=== PATIENT | female | born 1965 | race American Indian/Alaskan Native ===

== ENCOUNTER 2021-07-12 01:55 | Emergency (ER) | payer SELFPAY ==
[2021-07-12] MEDS ORDERED: ONDANSETRON 4 MG ODT TAB PO ONE (03:16)
[2021-07-12] MEDS ORDERED: HYDROcodone/ACETAMINOPHEN 7.5-325MG TAB PO ONE (03:16)
--- NOTE | 2021-07-12 04:02 | XRay Report ---
Right hand 3 views INDICATION: Hand pain FINDINGS: There is a fracture deformity of the distal radius suggested, uncertain age. Degenerative c hange and base of thumb and thumb MCP joint. IP joints are difficult to visualize as patient was not extending fingers. Signer Name: Yemi Adames MD Signed: 07/12/2021 3:57 AM Workstation Name: [email or web address]
--- NOTE | 2021-07-12 04:40 | Emergency Department Report ---
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 Patient states that the pain has been persistent and constant and that bearing weight on the right leg makes the pain worse. Patient denies head or neck injuries, dizziness, syncope, seizures, lightheadedness, nausea and vomiting, headache, chest pain or shortness of breath, numbness and tingling or weakness of upper and lower extremities bilaterally. MD Complaint: fall, other (right knee and right hand pain) -: Sudden, hour(s) (12) Fall From: standing, down stairs (#) (3) When Fall Occurred: other (12 hours ago) Fall Witnessed: yes, by family Place Fall Occurred: home Loss of Consciousness: none Prolonged Down Time?: no Symptoms Prior to Fall: none, other (tripped over a car) Location: other (right knee and right hand) Location - Extremities: Right: Hand (pain, deformity), Knee (pain and swelling) Severity: severe Severity scale (0 -10): 8 Quality: sharp, aching Context: tripped/slipped Associated Symptoms: denies. denies: headache, neck pain, numbness, weakness, chest paint, shortness of breath, abdominal pain, hematuria, unable to walk, lightheaded, vertigo, confusion, other - Related Data Previous Rx's Medication Instructions Recorded Last Taken Type Baclofen 20 mg PO Q12H PRN #20 tablet 07/12/21 Unknown Rx HYDROcodone/APAP 5-325 [[place] 1 each PO Q6HR PRN #12 tablet 07/12/21 Unknown Rx 5/325] Ondansetron [Zofran Odt] 4 mg PO Q6HR PRN #15 tab.rapdis 07/12/21 Unknown Rx Allergies Allergy/AdvReac Type Severity Reaction Status Date / Time morphine Allergy Unknown Verified 07/12/21 01:58 NSAIDS (Non-Steroidal Allergy Unknown Verified 07/12/21 01:58 Anti-Inflamma ED Review of Systems ROS: Stated complaint: FALL Other details as noted in HPI Constitutional: denies: chills, fever Eyes: denies: eye pain, eye discharge, vision change ENT: denies: ear pain, throat pain Respiratory: denies: cough, shortness of breath, wheezing Cardiovascular: denies: chest pain, palpitations Endocrine: no symptoms reported Gastrointestinal: denies: abdominal pain, nausea, diarrhea Genitourinary: denies: urgency, dysuria, discharge Musculoskeletal: joint swelling (Right hand and knee swelling), arthralgia (Right knee and hand pain with swelling), other (Right hand deformity from a previous injury). denies: back pain Skin: denies: rash, lesions Neurological: denies: headache, weakness, paresthesias Psychiatric: denies: anxiety, depression Hematological/Lymphatic: denies: easy bleeding, easy bruising ED Past Medical Hx - Past Medical History Previous Medical History?: Yes Hx Asthma: Yes - Surgical History Past Surgical History?: Yes Additional Surgical History: right shoulder - Medications Home Medications: Home Medications Medication Instructions Recorded Confirmed Last Taken Type Baclofen 20 mg PO Q12H PRN #20 tablet 07/12/21 Unknown Rx HYDROcodone/APAP 5-325 [[place] 1 each PO Q6HR PRN #12 tablet 07/12/21 Unknown Rx 5/325] Ondansetron [Zofran Odt] 4 mg PO Q6HR PRN #15 tab.rapdis 07/12/21 Unknown Rx ED Physical Exam - General Limitations: No Limitations General appearance: alert, in no apparent distress - Head Head exam: Present: atraumatic, normocephalic, normal inspection - Eye Eye exam: Present: normal appearance, PERRL, EOMI Pupils: Present: normal accommodation - ENT ENT exam: Present: normal exam, normal orophraynx, mucous membranes moist, TM's normal bilaterally, normal external ear exam - Neck Neck exam: Present: normal inspection, full ROM - Respiratory Respiratory exam: Present: normal lung sounds bilaterally. Absent: respiratory distress, wheezes, rales, rhonchi, chest wall tenderness, accessory muscle use, decreased breath sounds, prolonged expiratory - Cardiovascular Cardiovascular Exam: Present: regular rate, normal rhythm, normal heart sounds. Absent: systolic murmur, diastolic murmur, rubs, gallop - GI/Abdominal GI/Abdominal exam: Present: soft, normal bowel sounds. Absent: tenderness, guarding, rebound, hyperactive bowel sounds, hypoactive bowel sounds, organ omegaly - Extremities Exam Extremities exam: Present: normal inspection, full ROM, tenderness (Palpable severe right knee and right hand tenderness), normal capillary refill, joint swelling (Right knee swelling), other (Right hand deformity). Absent: pedal edema - Back Exam Back exam: Present: normal inspection, full ROM. Absent: tenderness, CVA tenderness (R), muscle spasm, paraspinal tenderness, vertebral tenderness - Neurological Exam Neurological exam: Present: alert, oriented X3, CN II-XII intact, normal gait, reflexes normal - Psychiatric Psychiatric exam: Present: normal affect, normal mood - Skin Skin exam: Present: warm, dry, intact, normal color. Absent: rash ED Course Vital Signs 07/12/21 04:43 Temperature 98.6 F Pulse Rate 86 Respiratory 18 Rate Blood Pressure 164/87 [Right] O2 Sat by Pulse 99 Oximetry ED Medical Decision Making - Radiology Data Radiology results: report reviewed, image reviewed [address] [address] XRay Report Signed with Addenda Patient: RONNELL ANDREWS MR#: [id number] : 1965 Acct:[id number] Age/Sex: 55 / F ADM Date: 07/12/21 Loc: ED Attending Dr: Ordering Physician: JUAN ANTONIO OCHOA Date of Service: 07/12/21 Procedure(s): XR knee 3V RT Accession Number(s): [id number] cc: JUAN ANTONIO OCHOA Fluoro Time In Minutes: ADDENDUM Right knee 3 views INDICATION: Knee pain FINDINGS: Postoperative changes right knee arthroplasty. There is a moderate joint effusion. No evidence for hardware failure. No displaced fracture IMPRESSION: Moderate effusion with diffuse edema in the anterior knee Signer Name: Yemi Lundberg MD Signed: 07/12/2021 4:28 AM Workstation Name: [id number] Addendum Transcribed By: LUCIO Addendum Dictated By: CLAY LUNDBERG MD Addendum Electronically Authenticated By: CLAY LUNDBERG MD Addendum Signed Date/Time: 07/12/21427 DD/ /21/427 TD/TT: / Right hand 3 views INDICATION: Hand pain FINDINGS: There is a fracture deformity of the distal radius suggested, uncertain age. Degenerative change and base of thumb and thumb MCP joint. IP joints are difficult to visualize as patient was not extending fingers. Signer Name: Yemi Lundberg MD Signed: 07/12/2021 3:57 AM Workstation Name: [id number] Transcribed By: LUCIO Dictated By: CLAY LUNDBERG MD Electronically Authenticated By: CLAY LUNDBERG MD Signed Date/Time: 07/12/21356 DD/ 5 TD/TT: -- [Addendum Report Added by CLAY LUNDBERG at 2021-07-12 04:34:06] [facility] [address] [place] [address] XRay Report Signed Patient: RONNELL ANDREWS MR#: [id number] : 1965 Acct:[id number] Age/Sex: 55 / F ADM Date: 07/12/21 Loc: ED Attending Dr: Ordering Physician: JUAN ANTONIO OCHOA Date of Service: 07/12/21 Procedure(s): XR knee 3V RT Accession Number(s): [id number] cc: JUAN ANTONIO OCHOA Fluoro Time In Minutes: Right hand 3 views INDICATION: Hand pain FINDINGS: There is a fracture deformity of the distal radius suggested, uncertain age. Degenerative change and base of thumb and thumb MCP joint. IP joints are difficult to visualize as patient was not extending fingers. 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 Patient states that the pain has been persistent and constant and that bearing weight on the right leg makes the pain worse. In the ED, patient is alert and oriented x3 and is not in any distress, but anxious demanding pain medications. Patient was treated for pain in the ED and right knee x-ray showed no acute fractures or subluxations and postoperative changes right knee arthroplasty. There is a moderate joint effusion. No evidence for hardware failure. No displaced fracture. The right hand x-ray showed a fracture deformity of the distal radius suggested, uncertain age. Degenerative change and base of thumb and thumb MCP joint. IP joints are difficult to visualize as patient was not extending fingers. On reevaluation, patient's pain is well controlled medications. Patient right knee was splinted with [place]pe wrap and the patient will discharge home on pain medications and advised to follow-up with her primary care physician in 5 to 7 days for reevaluation. Patient was advised return to the ED immediately if symptoms get worse. - Differential Diagnosis knee fracture; hand fracture; hand contusion; knee sprain Critical care attestation.: If time is entered above; I have spent that time in minutes in the direct care of this critically ill patient, excluding procedure time. ED Disposition Clinical Impression: Sprain of right knee/leg Qualifiers: Encounter type: initial encounter Qualified Code(s): S83.91XA - Sprain of unspecified site of right knee, initial encounter Contusion of right hand including fingers Qualifiers: Encounter type: initial encounter Qualified Code(s): S60.221A - Contusion of right hand, initial encounter Disposition: 01 HOME / SELF CARE / HOMELESS Is pt being admited?: No Does the pt Need Aspirin: No Condition: Stable Instructions: Knee Sprain, Adult, [id number], Hand Contusion, [id number], Contusion, [id number] Additional Instructions: Your right knee x-ray showed no acute fractures or subluxations, the hardware is intact with no disc placement. The right hand x-ray showed distal radius fracture, suspected to be chronic. Your symptoms are likely musculoskeletal following the fall accident he suffered. Therefore take pain medications with food, drink plenty of fluids and follow-up with your primary care physician in 5 to 7 days for reevaluation. Return to the ED immediately if symptoms get worse. Prescriptions: Baclofen 20 mg PO Q12H PRN #20 tablet PRN Reason: Muscle Spasm HYDROcodone/APAP 5-325 [[place] 5/325] 1 each PO Q6HR PRN #12 tablet PRN Reason: Pain Ondansetron [Zofran Odt] 4 mg PO Q6HR PRN #15 tab.rapdis PRN Reason: Nausea Referrals: [facility] [Provider Group] - 3-5 Days Time of Disposition: 04:39 Print Language: MOHAWK
[2021-07-12 04:44] VITALS: BP 164/87
== END 2021-07-12 05:25 | disposition home or self-care (01) ==
LOC: ED 01:55
DX: S83.91XA Sprain of unspecified site of right knee, initial encounter (principal); S60.221A Contusion of right hand, initial encounter; J45.909 Unspecified asthma, uncomplicated; Z79.899 Other long term (current) drug therapy; Z88.6 Allergy status to analgesic agent; Z88.8 Allergy status to other drugs, medicaments and biological substances; Z98.890 Other specified postprocedural states; W10.8XXA Fall (on) (from) other stairs and steps, initial encounter; Y93.89 Activity, other specified; Y92.099 Unspecified place in other non-institutional residence as the place of occurrence of the external cause; Y99.8 Other external cause status
CPT/HCPCS: Q0162